=== PATIENT | male | born 1960 | race Caucasian/White ===

== ENCOUNTER → 2020-09-15 | Outpatient (CLI) | payer OTHER ==
[~2020-09-15] MED LIST: ASPI81CH PO; Flomax0.4 MG PO; KETO10 PO; OXYACE5T PO; PROM25 PO; Percocet 5-3251 EACH PO; TAMS.4ER PO; Zofran Odt4 MG SL
== END | disposition home or self-care (01) ==
LOC: PLD 14:47 → LAB SHORT 14:47
DX: L02.419 Cutaneous abscess of limb, unspecified (principal)
CPT/HCPCS: 87070; 87075; 87077; 87147; 87186; 87205

== ENCOUNTER 2020-12-20 18:57 | Observation (INO) | payer OTHER ==
[~2020-12-20] VITALS: Ht 182.9 cm; Wt 93.0 kg
[2020-12-20] MEDS ORDERED: CENTRUM SILVER1 EAC2 PO (19:18)
[2020-12-20] MEDS ORDERED: CALCIUM 600 +1 EA11 PO (19:18)
[2020-12-20] MEDS ORDERED: ASCO500 PO (19:19)
[2020-12-20 19:44] LABS: BASOPHILS ABSOLUTE AUTO 0.04 K/mm3 (0.00-0.23); BASOPHILS PERCENT AUTO 1 % (0-2); EOSINOPHILS ABSOLUTE AUTO 0.29 K/mm3 (0.00-0.68); EOSINOPHILS PERCENT AUTO 4 % (0-6); Hematocrit 48.4 % (37.0-53.0); Hemoglobin 16.6 g/dL (13.5-17.5); IMMATURE GRAN ABSOLUTE AUTO 0.02 K/mm3 (0.00-0.10); IMMATURE GRAN PERCENT AUTO 0 % (0-1); LYMPHOCYTES ABSOLUTE AUTO 3.81 K/mm3 (0.84-5.20); LYMPHOCYTES PERCENT AUTO 46 % (21-46); MONOCYTES ABSOLUTE AUTO 1.14 K/mm3 (0.16-1.47); MONOCYTES PERCENT AUTO 14 % (4-13); Mean Corpuscular HGB 30.5 pg (26.0-34.0); Mean Corpuscular HGB Conc 34.3 g/dL (31.5-36.5); Mean Corpuscular Volume 89 fL (80-100); Mean Platelet Volume 9.5 fL (9.1-12.4); NEUTROPHILS ABSOLUTE AUTO 3.05 K/mm3 (1.96-9.15); NEUTROPHILS PERCENT AUTO 37 % (41-73); Platelet Count 243 K/mm3 (150-400); RDW Coefficient Variation 11.9 % (11.7-14.2); RDW Standard Deviation 38.3 fL (35.1-46.3); Red Blood Cell Count 5.45 M/mm3 (4.30-5.90); White Blood Cell Count 8.35 K/mm3 (4.00-11.30)
[2020-12-20 19:56] LABS: International Normalized Ratio 0.99; Prothrombin Time Results 10.6 Sec (9.7-11.5)
[2020-12-20 20:15] LABS: Alanine Aminotransfer (ALT/SGP 31 U/L (12-78); Albumin, Blood 3.7 g/dL (3.4-5.0); Albumin/Globulin Ratio 0.9 (0.8-1.8); Alk Phos 102 U/L (50-136); Anion Gap 5 mmol/L (6-16); Aspartate Aminotrans (AST/SGOT 26 U/L (12-37); Bilirubin, Total 0.4 mg/dL (0.1-1.0); Blood Urea Nitrogen 11 mg/dL (8-24); Bun/Creatinine Ratio 13.4 (12.0-20.0); CO2, Blood 28 mmol/L (21-32); Calcium, Blood 8.8 mg/dL (8.5-10.1); Chloride, Blood 106 mmol/L (98-108); Creatinine, Blood 0.82 mg/dL (0.60-1.20); Globulin, Blood 4.1 g/dL (2.2-4.0); Glomerular Filtration Rate >60 (60-); Glucose, Blood 82 mg/dL (70-99); Potassium, Blood 3.6 mmol/L (3.5-5.5); Sodium, Blood 139 mmol/L (136-145); Total Protein, Blood 7.8 g/dL (6.4-8.2); Troponin I 0.158 ng/mL (0.000-0.040)
--- NOTE | 2020-12-21 00:36 | NUR ---
RECIEVED REPORT FROM JOSE ANTONIO JUNG. PATIENT ARRIVED TO ROOM @2222 VIA STRETCHER AND TRANSFERRED INDEPENDENTLY TO THE BED. PATIENT DENIES CP/PRESSURE. BLOOD PRESSURE HIGH WHEN PATIENT FIRST ARRIVED, PATIENT STATED HE WAS JUST NERVOUS, GAVE HIM TIME TO RELAX AND BLOOD PRESSURE DECREASED. 02 SATS >90% ON RA. VSS, NO ACUTE CHANGES. CALL LIGHT IN REACH.
[2020-12-21 06:04] LABS: BASOPHILS ABSOLUTE AUTO 0.03 K/mm3 (0.00-0.23); BASOPHILS PERCENT AUTO 0 % (0-2); EOSINOPHILS ABSOLUTE AUTO 0.26 K/mm3 (0.00-0.68); EOSINOPHILS PERCENT AUTO 4 % (0-6); Hematocrit 48.1 % (37.0-53.0); Hemoglobin 16.6 g/dL (13.5-17.5); IMMATURE GRAN ABSOLUTE AUTO 0.02 K/mm3 (0.00-0.10); IMMATURE GRAN PERCENT AUTO 0 % (0-1); LYMPHOCYTES ABSOLUTE AUTO 2.67 K/mm3 (0.84-5.20); LYMPHOCYTES PERCENT AUTO 36 % (21-46); MONOCYTES ABSOLUTE AUTO 0.66 K/mm3 (0.16-1.47); MONOCYTES PERCENT AUTO 9 % (4-13); Mean Corpuscular HGB 30.5 pg (26.0-34.0); Mean Corpuscular HGB Conc 34.5 g/dL (31.5-36.5); Mean Corpuscular Volume 88 fL (80-100); Mean Platelet Volume 9.2 fL (9.1-12.4); NEUTROPHILS ABSOLUTE AUTO 3.69 K/mm3 (1.96-9.15); NEUTROPHILS PERCENT AUTO 50 % (41-73); Platelet Count 223 K/mm3 (150-400); RDW Coefficient Variation 11.9 % (11.7-14.2); RDW Standard Deviation 38.2 fL (35.1-46.3); Red Blood Cell Count 5.44 M/mm3 (4.30-5.90); White Blood Cell Count 7.33 K/mm3 (4.00-11.30)
--- NOTE | 2020-12-21 06:14 | NUR ---
SHIFT SUMMARY A&OX4. PATIENT SLEPT THROUGHT THE NIGHT. REPOSTIONS SELF INDEPENDENTLY. PATIENT HAS BEEN NPO SINCE MIDNIGHT. 02 SATS >90% ON RA. VSS, NO ACUTE CHANGES. PATIENT DENEIS CP/PRESSURE. CALL LIGHT IN REACH.
[2020-12-21 06:22] LABS: Anion Gap 7 mmol/L (6-16); Blood Urea Nitrogen 11 mg/dL (8-24); Bun/Creatinine Ratio 14.5 (12.0-20.0); CO2, Blood 24 mmol/L (21-32); Calcium, Blood 8.6 mg/dL (8.5-10.1); Chloride, Blood 110 mmol/L (98-108); Creatinine, Blood 0.76 mg/dL (0.60-1.20); Glomerular Filtration Rate >60 (60-); Glucose, Blood 90 mg/dL (70-99); Potassium, Blood 4.3 mmol/L (3.5-5.5); Sodium, Blood 141 mmol/L (136-145)
--- NOTE | 2020-12-21 08:00 | NUR ---
pt laying in bed awake a/ox3, pleasant and cooperative with care, follows commands well, denies pain, reports the only time he had chest pain was at Dr. office, lungs are clear t/o, on r/a, no cough noted, hrr, tele in place running sr per monitor, see strip, no edema noted, ppp+2, cap refill <3sec, vs stable, afebrile, iv site is clear and patent, btx4, abd flat soft nontender, voids without diff, skin c/w/d, shayna simms, call light in reach, npo at this time, waiting on a trop, plan dep on that.
--- NOTE | 2020-12-21 10:56 | NUR ---
Echocardiogram completed.
[2020-12-21] MEDS ORDERED: Aspirin EC81 MG PO (16:42)
[2020-12-21] MEDS ORDERED: ATOR40TA PO (16:43)
--- NOTE | 2020-12-21 17:18 | NUR ---
PT HAS BEEN DISCHARGED TO HOME, WENT OVER INSTRUCTIONS, HE VERBALIZED UNDERSTANDING, IV REMOVED INTACT, LEFT VIA AMBULATION WITH FAMILY.
== END 2020-12-21 17:30 | disposition hospice, home (50) ==
LOC: ER 18:57 → PCU 18:58
PROVIDERS: Emergency Medicine; Nurse Practitioner Acute Care; ADMIT Internal Medicine
DX: R07.9 Chest pain, unspecified (principal); R77.8 Other specified abnormalities of plasma proteins; E66.9 Obesity, unspecified; I35.8 Other nonrheumatic aortic valve disorders; I51.7 Cardiomegaly; Z68.27 Body mass index [BMI] 27.0-27.9, adult; Z87.891 Personal history of nicotine dependence
CPT/HCPCS: 36415; 80048; 80053; 84484; 85025; 85610; 85730; 93005; 93010; 93306; 96372; 99285-25; A9270; G0378; J1650

== ENCOUNTER 2022-05-14 19:15 | Emergency (ER) | payer OTHER ==
[~2022-05-14] VITALS: Ht 182.9 cm; Wt 95.2 kg
[~2022-05-14 19:15] MED LIST changes: +ASCO500 PO; +ATOR40TA PO; +Aspirin EC81 MG PO; +CALCIUM 600 +1 EA11 PO; +CENTRUM SILVER1 EAC2 PO
[2022-05-14 19:56] LABS: BASOPHILS ABSOLUTE AUTO 0.04 K/mm3 (0.00-0.23); BASOPHILS PERCENT AUTO 0 % (0-2); EOSINOPHILS ABSOLUTE AUTO 0.29 K/mm3 (0.00-0.68); EOSINOPHILS PERCENT AUTO 3 % (0-6); Hematocrit 47.3 % (37.0-53.0); Hemoglobin 16.7 g/dL (13.5-17.5); IMMATURE GRAN ABSOLUTE AUTO 0.03 K/mm3 (0.00-0.10); IMMATURE GRAN PERCENT AUTO 0 % (0-1); LYMPHOCYTES ABSOLUTE AUTO 2.79 K/mm3 (0.84-5.20); LYMPHOCYTES PERCENT AUTO 27 % (21-46); MONOCYTES ABSOLUTE AUTO 0.84 K/mm3 (0.16-1.47); MONOCYTES PERCENT AUTO 8 % (4-13); Mean Corpuscular HGB 31.2 pg (26.0-34.0); Mean Corpuscular HGB Conc 35.3 g/dL (31.5-36.5); Mean Corpuscular Volume 88 fL (80-100); Mean Platelet Volume 9.6 fL (9.1-12.4); NEUTROPHILS ABSOLUTE AUTO 6.35 K/mm3 (1.96-9.15); NEUTROPHILS PERCENT AUTO 61 % (41-73); Platelet Count 197 K/mm3 (150-400); RDW Standard Deviation 38.8 fL (35.1-46.3); Red Blood Cell Count 5.36 M/mm3 (4.30-5.90); White Blood Cell Count 10.34 K/mm3 (4.00-11.30)
[2022-05-14 20:28] LABS: Albumin, Blood 4.2 g/dL (3.4-5.0); Albumin/Globulin Ratio 1.1 (0.8-1.8); Bilirubin, Total 0.8 mg/dL (0.1-1.0); Calcium, Blood 9.6 mg/dL (8.5-10.1); Creatinine, Blood 0.94 mg/dL (0.60-1.20); Globulin, Blood 3.8 g/dL (2.2-4.0); Potassium, Blood 4.4 mmol/L (3.5-5.5)
[2022-05-14 20:44] LABS: Source, Urine Clean Catch
[2022-05-14 20:46] LABS: Bilirubin, Urine Neg (Neg); Blood, Urine 5+ (Neg); Glucose Qualitative, Urine Neg (Neg); Ketones, Urine Neg (Neg); Leukocyte Esterase, Urine 1+ (Neg); Nitrite, Urine Neg (Neg); Protein, Urine 2+ (Neg); Specific Gravity, Urine 1.015 (1.003-1.022); Urobilinogen, Urine NORM (Normal); pH, Urine 6.5 (5.0-8.0)
[2022-05-14 21:08] LABS: Appearance, Urine Hazy (Clear); Color, Urine Yellow (P-Yellow)
[2022-05-14 21:09] LABS: Hyaline Casts 0-2 /lpf (0-2); Mucus Light (0-Heavy); Red Blood Cells, Urine 50-100 /hpf (0-2)
[2022-05-14 21:10] LABS: Bacteria Mod /hpf; Squamous Epithelial Cells Not Seen /hpf (Few); White Blood Cells, Urine 0-2 /hpf (0-5)
[2022-05-14] MEDS ORDERED: IBUP400 PO (22:09)
[2022-05-14] MEDS ORDERED: ONDA4ODT SL (22:09)
[2022-05-14] MEDS ORDERED: Percocet 5-3251 EACH PO (22:09)
== END 2022-05-14 22:32 | disposition home or self-care (01) ==
LOC: ER 19:15
PROVIDERS: Emergency Medicine
DX: N13.2 Hydronephrosis with renal and ureteral calculous obstruction (principal); Z87.891 Personal history of nicotine dependence; Z79.899 Other long term (current) drug therapy
CPT/HCPCS: 36415; 74176; 80053; 81001; 85025; A9270

== ENCOUNTER → 2022-08-29 | Outpatient (CLI) | payer SELFPAY ==
[~2022-08-29] MED LIST changes: +IBUP400 PO; +ONDA4ODT SL
== END | disposition home or self-care (01) ==
LOC: LAB SHORT 12:08 → LAB 12:08
DX: N13.2 Hydronephrosis with renal and ureteral calculous obstruction (principal)
CPT/HCPCS: 81050

== ENCOUNTER 2024-11-30 10:17 | Emergency (ER) | payer OTHER ==
[~2024-11-30] VITALS: Ht 182.9 cm; Wt 95.2 kg
[2024-11-30 11:11] LABS: BASOPHILS ABSOLUTE AUTO 0.04 K/mm3 (0.00-0.23); BASOPHILS PERCENT AUTO 1 % (0-2); EOSINOPHILS ABSOLUTE AUTO 0.27 K/mm3 (0.00-0.68); EOSINOPHILS PERCENT AUTO 3 % (0-6); Hematocrit 47.1 % (37.0-53.0); Hemoglobin 16.3 g/dL (13.5-17.5); IMMATURE GRAN ABSOLUTE AUTO 0.02 K/mm3 (0.00-0.10); IMMATURE GRAN PERCENT AUTO 0 % (0-1); LYMPHOCYTES ABSOLUTE AUTO 2.14 K/mm3 (0.84-5.20); LYMPHOCYTES PERCENT AUTO 24 % (21-46); MONOCYTES ABSOLUTE AUTO 1.17 K/mm3 (0.16-1.47); MONOCYTES PERCENT AUTO 13 % (4-13); Mean Corpuscular HGB 30.9 pg (26.0-34.0); Mean Corpuscular HGB Conc 34.6 g/dL (31.5-36.5); Mean Corpuscular Volume 89 fL (80-100); Mean Platelet Volume 9.7 fL (9.1-12.4); NEUTROPHILS ABSOLUTE AUTO 5.18 K/mm3 (1.96-9.15); NEUTROPHILS PERCENT AUTO 59 % (41-73); Platelet Count 234 K/mm3 (150-400); RDW Coefficient Variation 12.8 % (11.7-14.2); RDW Standard Deviation 41.4 fL (35.1-46.3); Red Blood Cell Count 5.28 M/mm3 (4.30-5.90); White Blood Cell Count 8.82 K/mm3 (4.00-11.30)
[2024-11-30 12:00] LABS: Albumin, Blood 3.8 g/dL (3.4-5.0); Albumin/Globulin Ratio 0.8 (0.8-1.8); Bilirubin, Total 0.7 mg/dL (0.1-1.0); Bun/Creatinine Ratio 14.3 (12.0-20.0); Calcium, Blood 9.7 mg/dL (8.5-10.1); Creatinine, Blood 0.84 mg/dL (0.60-1.20); Globulin, Blood 4.7 g/dL (2.2-4.0); Potassium, Blood 3.8 mmol/L (3.5-5.5); Total Protein, Blood 8.5 g/dL (6.4-8.2)
[2024-11-30 14:52] LABS: Source, Urine Clean Catch
[2024-11-30 14:54] VITALS: BP 165/106
[2024-11-30 15:07] LABS: Appearance, Urine Clear (Clear); Bilirubin, Urine Neg (Neg); Blood, Urine Neg (Neg); Color, Urine Yellow (P-Yellow); Glucose Qualitative, Urine Neg (Neg); Ketones, Urine Neg (Neg); Leukocyte Esterase, Urine 1+ (Neg); Nitrite, Urine Neg (Neg); Protein, Urine 2+ (Neg); Urobilinogen, Urine NORM (Normal)
[2024-11-30 15:17] LABS: Mucus Light (0-Heavy); Red Blood Cells, Urine 0-2 /hpf (0-2)
[2024-11-30 15:18] LABS: Squamous Epithelial Cells Not Seen /hpf (Few)
[2024-11-30 15:20] LABS: Bacteria Few /hpf; Calcium Oxalate Crystals Rare /hpf
[2024-11-30] MEDS ORDERED: TAMS.4ER PO (15:55)
[2024-11-30] MEDS ORDERED: CEFP200 PO (15:55)
== END 2024-11-30 16:09 | disposition home or self-care (01) ==
LOC: ER 10:17
PROVIDERS: Emergency Medicine
DX: N39.0 Urinary tract infection, site not specified (principal); N23 Unspecified renal colic; Z87.891 Personal history of nicotine dependence
CPT/HCPCS: 74176; 80053; 81001; 85025; 87086; 99284-25

== ENCOUNTER → 2024-12-05 | Outpatient (CLI) | payer OTHER ==
[~2024-12-05] MED LIST changes: +CEFP200 PO
[2024-12-09 05:22] LABS: VARICELLA-ZOSTER VIRUS BY PCR Detected; VARICELLA-ZOSTER VIRUS SOURCE Lesion Swab
== END | disposition home or self-care (01) ==
LOC: LAB SHORT 17:26 → LAB 17:26
PROVIDERS: Physician Assistant
DX: Z12.83 Encounter for screening for malignant neoplasm of skin (principal); L30.9 Dermatitis, unspecified; L21.8 Other seborrheic dermatitis; L57.8 Other skin changes due to chronic exposure to nonionizing radiation; L81.4 Other melanin hyperpigmentation
CPT/HCPCS: 87798